=== PATIENT | female | born 1985 | race Caucasian/White ===

== ENCOUNTER 2016-08-01 05:26 | Inpatient (IN) | payer BC ==
[2016-08-01] VITALS (8 sets, daily range): BP systolic 113–151; BP diastolic 58–88
[~2016-08-01] VITALS: Ht 175.3 cm; Wt 90.0 kg
[~2016-08-01 05:26] MED LIST: ENDOCET 5-3251 EACH PO; IBUPROFEN800 MG PO; LORCET 5-325 M1 EACH PO; MOTRIN800 MG PO; Normodyne,Trandate PO; PRENATAL TABLE1 EAC3 PO; TYLENOL EXTRA500 MG PO
[2016-08-02 02:13] VITALS: BP 106/55
[2016-08-02 07:24] LABS: EOSINOPHIL (%) 1.2 % (0-5); EOSINOPHIL COUNT 0.2 K/uL (0-0.3); HEMATOCRIT 27.7 % (36.0-46.0); IMMATURE GRANULOCYTE (%) 1.1 % (0.0-0.7); IMMATURE GRANULOCYTE COUNT 0.1 K/uL; INSTRUMENT ABS NEUTROPHIL CT 7.2 K/uL; LYMPHOCYTE COUNT 3.7 K/uL (1.0-2.8); MCH 33.7 PG (29.0-34.0); MCHC 34.3 G/DL (30.0-36.0); MCV 98.2 FL (83-99); MEAN PLAT.VOLUME 9.1 uM^3 (9.5-12.4); MONOCYTE (%) 9.4 % (3-12); MONOCYTE COUNT 1.2 K/uL (0-0.8); NEUTROPHIL (%) 58.4 % (45-76); NEUTROPHIL COUNT 7.2 K/uL (1.8-6.4); PLATELET COUNT 228 K/uL (156-360); RBC DIS.WIDTH-CV 12.4 % (11.8-14.6); RBC DIS.WIDTH-SD 45.5 % (39-53); WHITE BLOOD COUNT 12.4 K/uL (4.1-10.2)
[2016-08-02 07:28] LABS: RED BLOOD COUNT 2.82 M/uL (3.80-5.20)
[2016-08-02 07:51] VITALS: BP 119/61
[2016-08-02 11:21] VITALS: BP 113/64
[2016-08-02 14:34] VITALS: BP 109/67
[2016-08-02 19:46] VITALS: BP 119/67
[2016-08-03 03:00] VITALS: BP 112/72
[2016-08-03] MEDS ORDERED: IBUPROFEN800 MG PO (08:38)
[2016-08-03] MEDS ORDERED: ENDOCET 5-3251 EACH PO (08:38)
[2016-08-03 11:22] VITALS: BP 111/55
== END 2016-08-03 16:10 | disposition home or self-care (01) | DRG 765 ==
LOC: 2WEST 05:26 → 2SOUTH 08:12 → 2WEST 08-03 16:10
PROVIDERS: Obstetrics & Gynecology
PROC: 10D00Z1 Extraction of Products of Conception, Low, Open Approach (ICD-10-PCS; principal; 2016-08-01)
DX: O34.211 Maternal care for low transverse scar from previous cesarean delivery (principal); O99.02 Anemia complicating childbirth; D62 Acute posthemorrhagic anemia; Z3A.39 39 weeks gestation of pregnancy; Z37.0 Single live birth
CPT/HCPCS: 36415; 85025; 86900; 86901; J1100; J1200; J1580; J2274; J2405; J2765; J7050; J7120